=== PATIENT | female | born 1940 | race Asian ===

== ENCOUNTER 2022-04-04 08:32 | Day surgery (SDC) | payer OTHER ==
[2022-04-02 11:34] VITALS: BMI 20.1
[2022-04-04] MEDS ORDERED: MIDAZOLAM HCL 2 MG/2 ML SINGLE DOSE VIAL ONE (09:29)
[2022-04-04] MEDS ORDERED: ROPIVACAINE HCL 0.5% 30ML VIAL ONE (09:31)
[2022-04-04] MEDS ORDERED: BUPIVACAINE HCL/PF 0.25% (2.5MG/ML) 10 ML VIAL ONE ×2 (09:37→09:38)
[2022-04-04] MEDS ORDERED: BUPIVACAINE HCL 100 ML ONE (09:38)
[2022-04-04] MEDS ORDERED: ceFAZolin SODIUM 1 GM VIAL ONE (10:02)
[2022-04-04] MEDS ORDERED: KETOROLAC TROMETHAMINE 30 MG/1 ML VIAL ONE (10:10)
[2022-04-04] MEDS ORDERED: ONDANSETRON 4 MG/2 ML VIAL ONE (10:10)
[2022-04-04] MEDS ORDERED: PROPOFOL 20 ML ONE (10:47)
[2022-04-04] MEDS ORDERED: oxyCODONE HCL 5 MG TABLET PO PRN ×2 (11:02)
[2022-04-04] MEDS ORDERED: PROMETHAZINE HCL 25 MG/1 ML VIAL IVPUSH PRN (11:02)
[2022-04-04] MEDS ORDERED: ONDANSETRON 4 MG/2 ML VIAL IVPUSH PRN (11:02)
[2022-04-04] MEDS ORDERED: LACTATED RINGERS SOLUTION 1,000 ML IV SCH (11:15)
[2022-04-04 12:37] VITALS: TEMP 97.8
[2022-04-04 13:01] VITALS: BP 160/64; PULSE 59; RESP 19
== END 2022-04-04 13:25 | disposition home or self-care (01) ==
LOC: FASU 08:32
PROVIDERS: ATTEND Orthopaedic Surgery Hand Surgery
PROC: 0LN50ZZ Release Right Lower Arm and Wrist Tendon, Open Approach (ICD-10-PCS; 2022-04-04)
PROC: 0PSH04Z Reposition Right Radius with Internal Fixation Device, Open Approach (ICD-10-PCS; principal; 2022-04-04 10:16)
DX: S52.531A Colles' fracture of right radius, initial encounter for closed fracture (principal); X58.XXXA Exposure to other specified factors, initial encounter; Y93.9 Activity, unspecified; Y92.9 Unspecified place or not applicable
CPT/HCPCS: 25290; 25608; C1713; 73110-TC-RT-FY; 73130-TC-RT-FY; 94760